=== PATIENT | male | born 1995 | race Caucasian/White ===

== ENCOUNTER 2016-11-06 09:28 | Emergency (ER) | payer BC ==
[2016-11-06 09:34] VITALS: BP 128/78; PULSE 75; RESP 16; TEMP 97.9; O2SAT 98
--- NOTE | 2016-11-06 09:54 | EDPHY ---
H & P Stated Complaint: Sore throat and sinus congestion x 1 wk;started after he stopped zyrtec Time Seen by Provider: 11/06/16 09:44 HPI/ROS: CHIEF COMPLAINT: Sore throat, nasal congestion, slight cough HISTORY OF PRESENT ILLNESS: The patient presents to the ED with a one-week history of nasal congestion, sore throat, slight cough and hoarseness. The patient denies significant past medical history. He denies myalgias or other flu-like symptoms. The patient denies any subjective fevers. The patient has no significant travel history. The patient denies rash or additional complaints. REVIEW OF SYSTEMS: A comprehensive 10 point review of systems is otherwise negative aside from elements mentioned in the history of present illness. Source: Patient Exam Limitations: No limitations - Personal History Current Tetanus Diphtheria and Acellular Pertussis (TDAP): Yes - Medical/Surgical History Hx Asthma: No Hx Chronic Respiratory Disease: No Hx Diabetes: No Hx Cardiac Disease: No Hx Renal Disease: No Hx Cirrhosis: No Hx Alcoholism: No Hx HIV/AIDS: No Hx Splenectomy or Spleen Trauma: No Other PMH: orif L arm - Social History Smoking Status: Never smoked - Physical Exam Exam: General Appearance: Alert, no distress Eyes: Pupils equal and round no pallor or injection ENT, Mouth: Minimal pharyngeal erythema, no peritonsillar abscess or mass Respiratory: There are no retractions, lungs are clear to auscultation Cardiovascular: Regular rate and rhythm Gastrointestinal: Abdomen is soft and nontender, no masses, bowel sounds normal Neurological: A&O, normal motor function, normal sensory exam, normal cranial nerves Skin: Warm and dry, no rashes Musculoskeletal: Neck is supple nontender Extremities: symmetrical, full range of motion Constitutional: Initial Vital Signs Temperature (C) 36.6 C 11/06/16 09:31 Heart Rate 75 11/06/16 09:31 Respiratory Rate 16 11/06/16 09:31 Blood Pressure 128/78 H 11/06/16 09:31 O2 Sat (%) 98 11/06/16 09:31 O2 Delivery Mode Room Air Allergies/Adverse Reactions: No Known Allergies Allergy (Verified 11/06/16 09:31) Home Medications: Medication Instructions Recorded NK [No Known Home Meds] 11/06/16 Medical Decision Making ED Course/Re-evaluation: The patient presents to the ED with symptoms consistent with a mild viral upper respiratory infection. The patient has no clinical evidence of pneumonia. He is afebrile non hypoxic. The patient did have minimal pharyngeal erythema without obvious streptococcal infection clinically. Rapid strep test was ordered by myself. The patient has been instructed of the self-limited nature of viral illnesses. He is encouraged to rest, get plenty of fluids and use Tylenol and ibuprofen for pain. He will be discharged home with customary aftercare instructions and return precautions. Differential Diagnosis: Differential diagnosis considered includes pharyngitis, viral syndrome, pneumonia - Data Points Laboratory Results: 11/06/16 11/06/16 Unknown Unknown Group A Strep Screen NEGATIVE (NEGATIVE) Group A Strep DNA Pending Departure - Departure Disposition: Home, Routine, Self-Care Clinical Impression: Upper respiratory infection Condition: Good Instructions: Upper Respiratory Infection (ED) Additional Instructions: 1. Tylenol and ibuprofen as needed for sore throat. 2. Please use a decongestant such as Sudafed. 3. There is no clinical evidence of pneumonia or an obvious infection requiring the use of antibiotics. You do have an upper respiratory infection likely caused by a virus the also known as the "common cold." 4. Please return to the ED for worsening symptoms such as high fever, worsening cough, difficulty breathing or other concerns. 5. Your strep test was negative. We will contact you if your culture or DNA test becomes positive and you need antibiotics. Referrals: [facility],. [Clinic] - As per Instructions
== END 2016-11-06 10:19 | disposition home or self-care (01) ==
DX: J06.9 Acute upper respiratory infection, unspecified (principal)

== ENCOUNTER 2016-11-07 08:05 | Emergency (ER) | payer BC ==
[2016-11-07 08:09] VITALS: BP 133/69; PULSE 98; RESP 16; TEMP 98.4; O2SAT 97
[2016-11-07] MEDS ORDERED: DEXAMETHASONE 10 MG/ML VIAL ONE (08:19)
[2016-11-07] MEDS ORDERED: DEXAMETHASONE 20 MG/5 ML MDV IV ONE (08:22)
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
== END 2016-11-07 08:29 | disposition home or self-care (01) ==
DX: J06.9 Acute upper respiratory infection, unspecified (principal)

== ENCOUNTER 2017-08-21 14:56 | Emergency (ER) | payer BC ==
[2017-08-21 15:00] VITALS: TEMP 97.5
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
[2017-08-21 16:23] VITALS: BP 135/82; PULSE 78; RESP 16; O2SAT 98
== END 2017-08-21 16:22 | disposition home or self-care (01) ==
PROC: 2W28X4Z Dressing of Right Upper Extremity using Bandage (ICD-10-PCS; principal; 2017-08-21)
DX: T23.251A Burn of second degree of right palm, initial encounter (principal); X15.8XXA Contact with other hot household appliances, initial encounter